=== PATIENT | male | born 1965 | race American Indian/Alaskan Native ===

== ENCOUNTER 2016-09-26 10:23 | Emergency (ER) | payer SELFPAY ==
[2016-09-26] MEDS ORDERED: CLEOCIN 900 MG/50 mL 900 MG/50 ML BAG IV ONE (10:45)
[2016-09-26] MEDS ORDERED: NACL 0.9% 1000 ML 1,000 ML IV ONE (10:46)
[2016-09-26] MEDS ORDERED: NORCO 5/325 PO ONE ×2 (10:47→15:06)
[2016-09-26] MEDS ORDERED: TORADOL IV ONE (10:47)
--- NOTE | 2016-09-26 10:53 | Emergency Department Report ---
ED ENT HPI - General Chief complaint: Sore Throat Stated complaint: SORE THROAT Time Seen by Provider: 09/26/16 10:36 Source: patient Mode of arrival: Ambulatory Limitations: No Limitations - History of Present Illness MD complaint: tooth pain, sore throat, difficulty swallowing -: Gradual Location: other (lower l) Severity: severe Quality: sharp Improves with: none Worsens with: none Context- Dental: history of dental caries, poor dental care Associated Symptoms: gum swelling, toothache, pain with swallowing, sore throat. denies: fever, cough, tinnitus, hearing loss, discharge from ear, rhinorrhea - Related Data Home Medications Medication Instructions Recorded Confirmed Last Taken Amoxicillin TAB 500 mg PO Q12H 09/26/16 09/26/16 09/26/16 Hydrochlorothiazide [HCTZ] 25 mg PO QDAY 09/26/16 09/26/16 09/25/16 Ibuprofen 800 mg PO TID PRN 09/26/16 09/26/16 09/26/16 Previous Rx's Medication Instructions Recorded Last Taken Type Clindamycin [Clindamycin CAP] 300 mg PO Q6H #40 capsule 09/26/16 Unknown Rx traMADol [Ultram] 50 mg PO Q6HR PRN #10 tablet 09/26/16 Unknown Rx Allergies Allergy/AdvReac Type Severity Reaction Status Date / Time No Known Allergies Allergy Unverified 09/26/16 10:32 ED Dental HPI - General Chief complaint: Sore Throat Stated complaint: SORE THROAT Time Seen by Provider: 09/26/16 10:36 Source: patient Mode of arrival: Ambulatory Limitations: No Limitations - Related Data Home Medications Medication Instructions Recorded Confirmed Last Taken Amoxicillin TAB 500 mg PO Q12H 09/26/16 09/26/16 09/26/16 Hydrochlorothiazide [HCTZ] 25 mg PO QDAY 09/26/16 09/26/16 09/25/16 Ibuprofen 800 mg PO TID PRN 09/26/16 09/26/16 09/26/16 Previous Rx's Medication Instructions Recorded Last Taken Type Clindamycin [Clindamycin CAP] 300 mg PO Q6H #40 capsule 09/26/16 Unknown Rx traMADol [Ultram] 50 mg PO Q6HR PRN #10 tablet 09/26/16 Unknown Rx Allergies Allergy/AdvReac Type Severity Reaction Status Date / Time No Known Allergies Allergy Unverified 09/26/16 10:32 ED Review of Systems ROS: Stated complaint: SORE THROAT Other details as noted in HPI Comment: Unobtainable due to pts medical conditions Constitutional: no symptoms reported, see HPI. denies: chills, diaphoresis, fever, malaise Eyes: as per HPI. denies: eye pain, eye discharge, vision change ENT: as per HPI, dental pain. denies: ear pain, throat pain, hearing loss, epistaxis Respiratory: no symptoms reported, see HPI. denies: cough, orthopnea, shortness of breath, SOB with exertion, SOB at rest, stridor Cardiovascular: as per HPI. denies: chest pain, palpitations, dyspnea on exertion, orthopnea Endocrine: no symptoms reported, see HPI. denies: excessive sweating, flushing , intolerance to cold, intolerance to heat Gastrointestinal: as per HPI. denies: abdominal pain, nausea, vomiting Genitourinary: as per HPI. denies: urgency, dysuria Musculoskeletal: as per HPI. denies: back pain Skin: as per HPI. denies: rash, lesions Neurological: as per HPI. denies: headache, weakness Psychiatric: as per HPI. denies: anxiety, depression Hematological/Lymphatic: as per HPI. denies: easy bleeding ED Past Medical Hx - Past Medical History Previous Medical History?: Yes Additional medical history: sore throat, dental caries - Surgical History Past Surgical History?: No - Family History Family history: no significant - Social History Smoking Status: Never Smoker Substance Use Type: Non Opiate Pain, Prescribed - Medications Home Medications: Home Medications Medication Instructions Recorded Confirmed Last Taken Type Amoxicillin TAB 500 mg PO Q12H 09/26/16 09/26/16 09/26/16 History Clindamycin [Clindamycin CAP] 300 mg PO Q6H #40 capsule 09/26/16 Unknown Rx Hydrochlorothiazide [HCTZ] 25 mg PO QDAY 09/26/16 09/26/16 09/25/16 History Ibuprofen 800 mg PO TID PRN 09/26/16 09/26/16 09/26/16 History traMADol [Ultram] 50 mg PO Q6HR PRN #10 tablet 09/26/16 Unknown Rx ED Physical Exam - General Limitations: No Limitations General appearance: alert, in no apparent distress - Head Head exam: Present: atraumatic - Eye Eye exam: Present: normal appearance, PERRL - ENT ENT exam: Present: mucous membranes dry, TM's normal bilaterally - Expanded ENT Exam Expanded Mouth exam: Present: tongue normal. Absent: drooling, trismus, muffled voice, tongue elevation Teeth exam: Present: dental caries, gingival enlargement 1 - Dental Tenderness Throat exam: Positive: normal inspection. Negative: tonsillar erythema, tonsillomegaly, tonsillar exudate, R peritonsillar mass, L peritonsillar mass - Neck Neck exam: Present: tenderness, lymphadenopathy - Expanded Neck Exam Expanded Neck exam: Absent: tenderness, midline deformity, anterior neck swelling, thyroid mass, carotid bruit, tracheal deviation - Respiratory Respiratory exam: Present: normal lung sounds bilaterally - Cardiovascular Cardiovascular Exam: Present: regular rate - GI/Abdominal GI/Abdominal exam: Present: soft - Rectal Rectal exam: Present: deferred - Extremities Exam Extremities exam: Present: normal inspection, full ROM - Back Exam Back exam: Present: normal inspection - Neurological Exam Neurological exam: Present: alert, oriented X3, CN II-XII intact, normal gait, reflexes normal. Absent: motor sensory deficit - Psychiatric Psychiatric exam: Present: normal affect, normal mood - Skin Skin exam: Present: warm, dry, intact, normal color ED Course Vital Signs 09/26/16 09/26/16 09/26/16 10:28 11:31 12:01 Temperature 98.7 F Pulse Rate 106 H Respiratory 18 16 16 Rate Blood Pressure 154/96 O2 Sat by Pulse 98 Oximetry 09/26/16 09/26/16 09/26/16 12:31 13:38 15:19 Temperature Pulse Rate Respiratory 16 16 18 Rate Blood Pressure O2 Sat by Pulse Oximetry - Reevaluation(s) Reevaluation #1: 09/26/16 to er w jaw pain abc intact saw md this week on amox for 3 d for l mary caries swelling of mary molar area of gingivitis. no localized abscess halitosis submand lymphadenopathy pt states can take fluids but not food-bc throat hurts no peritonsilar abscess on exam can open mouth but w pain no fever but has failed outpt 1st line NS Cipro IV labs CT with contrast. Reevaluation #2: 09/26/16 13:[address] Nicole wong 09/26/16 13:[address] Huynh- oral surg at [facility] given report on pt exam and lab/ct findings ok to dc home w follow up follow up with Dr Huynh in [place] on Wednesday09/26/16 15:15 pt monitored most of day feels better sitting up and taking po fluids and pills controlling secretions states pain is dec exam unchanged Reevaluation #3: 09/26/16 15:13 taking po remedicated dc instructions given will fu here tomorrow and then see Dr Huynh on Wednesday for extraction told to return to er if swelling worsens, if difficulty swallowing, or if develops high fever. bp and hr normalizing w dec in pain hr 90 on exam. bp 140/80 dc home ED Medical Decision Making - Lab Data Result diagrams: 09/26/16 10:58 09/26/16 10:58 - Medical Decision Making Discussed w attending and Jason oral surgeon submand abscess w proper anbx and follow up for extraction - Differential Diagnosis abscess v simple caries Critical care attestation.: If time is entered above; I have spent that time in minutes in the direct care of this critically ill patient, excluding procedure time. ED Disposition Clinical Impression: Dental abscess, Dental caries Disposition: DC-01 TO HOME OR SELFCARE Is pt being admited?: No Does the pt Need Aspirin: No Condition: Stable Instructions: Dental Abscess (ED) Additional Instructions: RECHECK HERE AT 7P TOMORROW EVENING ASK FOR CAROLINE WILL SEE ORAL SURG ON WEDNESDAY DR HUYNH IN [place] STOP AMOX ANTIBIOTIC GIVEN BEFORE AND TAKE MEDS GIVEN TODAY. Prescriptions: Clindamycin [Clindamycin CAP] 300 mg PO Q6H #40 capsule traMADol [Ultram] 50 mg PO Q6HR PRN #10 tablet PRN Reason: Pain Referrals: PRIMARY CARE, [Primary Care Provider] - 3-5 Days Time of Disposition: 15:12
[2016-09-26 11:14] LABS: Basophils % (Auto) 0.7 % (0.0-1.8); Eosinophils % (Auto) 1.7 % (0.0-4.3); Hemoglobin 15.4 gm/dl (11.8-15.2); Mean Corpuscular HGB Conc 34 % (32-34); Mean Corpuscular Hemoglobin 30 pg (28-32); Mean Corpuscular Volume 88 fl (84-94); Platelet Count 336 K/mm3 (140-440); Red Blood Count 5.22 M/mm3 (3.65-5.03); Red Cell Distribution Width 12.8 % (13.2-15.2); White Blood Count 12.4 K/mm3 (4.5-11.0)
[2016-09-26] MEDS ORDERED: NACL ONE (11:19)
[2016-09-26 11:31] LABS: Alanine Aminotransferase 32 units/L (7-56); Alkaline Phosphatase 95 units/L (35-129); Anion Gap 22 mmol/L; BUN/Creatinine Ratio 18.33; Blood Urea Nitrogen 22 mg/dL (9-20); Calcium 9.8 mg/dL (8.4-10.2); Carbon Dioxide 24 mmol/L (22-30); Chloride 96.3 mmol/L (98-107); Glucose 97 mg/dL (75-100); Potassium 4.2 mmol/L (3.6-5.0); Sodium 138 mmol/L (137-145); Total Protein 8.2 g/dL (6.3-8.2)
--- NOTE | 2016-09-26 12:39 | Cat Scan Report ---
CT NECK WITH CONTRAST: 09/26/16 CLINICAL: Abscess. TECHNIQUE: Volumetric acquisition and 1.25 mm scan reconstructionsafter the uneventful intravenous injection of 100-cc Omnipaque 350. Consent was obtained prior to the administration of the IV contrast. FINDINGS: A collection of fluid and air in the left submandibular space measures 3.0 x 2.5 x 2.2 cm. Including an irregular enhancing wall and thickened soft tissue the lesion measures 4.1 2.9 x 2.7 cm. Large cavity of the left third molar tooth and a large cavity of the right third molar tooth. The tonsils are normal. The parapharyngeal spaces are normal. Normal salivary glands. Shotty lymph nodes in bilateral submandibular spaces and bilateral jugular chains. No signs of osteomyelitis. Normal mucosal structures of the nasopharynx, hypopharynx and larynx. Normal thyroid. The upper lung meng are clear. Vascular structures are normal. The bones are normal. Mild left ethmoid sinusitis otherwise normal sinuses. Normal mastoids. IMPRESSION: 1. Odontogenic 4 cm left submandibular abscess. 2. No tonsillar abscess. 3. Dental caries with large cavities in bilateral third molars. 4. No signs of osteomyelitis.
[2016-09-26] MEDS ORDERED: CLEOCIN PO ONE (15:06)
[2016-09-26 15:38] VITALS: BP 162/89
== END 2016-09-26 15:36 | disposition home or self-care (01) ==
LOC: ED 10:23
DX: K04.7 Periapical abscess without sinus (principal); K02.9 Dental caries, unspecified
CPT/HCPCS: 36415; 70491; 80053; 85025; 87040; 96365; 96375; 99284; J1885; J7030; Q9967; 96361; 96374

== ENCOUNTER 2016-09-27 18:51 | Emergency (ER) | payer SELFPAY ==
[2016-09-27] MEDS ORDERED: TYLENOL PO ONE (19:02)
[2016-09-27] MEDS ORDERED: TYLENOL ONE (19:02)
[2016-09-27] MEDS ORDERED: CLEOCIN 900 MG/50 mL 900 MG/50 ML BAG IV ONE (19:38)
[2016-09-27] MEDS ORDERED: NACL 0.9% 1000 ML 1,000 ML IV ONE (19:39)
--- NOTE | 2016-09-27 19:40 | Emergency Department Report ---
ED ENT HPI - General Chief complaint: Dental/Oral Stated complaint: DENTAL ABSCESS Time Seen by Provider: 09/27/16 19:13 Source: patient, RN notes reviewed, old records reviewed Mode of arrival: Ambulatory Limitations: No Limitations - History of Present Illness MD complaint: tooth pain, ear pain, other (neck - see note from yest) -: Gradual Location: other (l lower molar; sub mary abscess; see yesterdays note) Severity scale (0 -10): 5 Consistency: constant Worsens with: none Context- Dental: history of dental caries, poor dental care Associated Symptoms: fever, gum swelling, toothache, other (better today but he did not take his clinda today ). denies: cough, pain with swallowing, sore throat, tinnitus, hearing loss, discharge from ear, rhinorrhea - Related Data Home Medications Medication Instructions Recorded Confirmed Last Taken Amoxicillin TAB 500 mg PO Q12H 09/26/16 09/26/16 09/26/16 Hydrochlorothiazide [HCTZ] 25 mg PO QDAY 09/26/16 09/26/16 09/25/16 Ibuprofen 800 mg PO TID PRN 09/26/16 09/26/16 09/26/16 Previous Rx's Medication Instructions Recorded Last Taken Type Clindamycin [Clindamycin CAP] 300 mg PO Q6H #40 capsule 09/26/16 Unknown Rx traMADol [Ultram] 50 mg PO Q6HR PRN #10 tablet 09/26/16 Unknown Rx Allergies Allergy/AdvReac Type Severity Reaction Status Date / Time No Known Allergies Allergy Unverified 09/26/16 10:32 ED Dental HPI - General Chief complaint: Dental/Oral Stated complaint: DENTAL ABSCESS Time Seen by Provider: 09/27/16 19:13 Source: patient Mode of arrival: Ambulatory Limitations: No Limitations - Related Data Home Medications Medication Instructions Recorded Confirmed Last Taken Amoxicillin TAB 500 mg PO Q12H 09/26/16 09/26/16 09/26/16 Hydrochlorothiazide [HCTZ] 25 mg PO QDAY 09/26/16 09/26/16 09/25/16 Ibuprofen 800 mg PO TID PRN 09/26/16 09/26/16 09/26/16 Previous Rx's Medication Instructions Recorded Last Taken Type Clindamycin [Clindamycin CAP] 300 mg PO Q6H #40 capsule 09/26/16 Unknown Rx traMADol [Ultram] 50 mg PO Q6HR PRN #10 tablet 09/26/16 Unknown Rx Allergies Allergy/AdvReac Type Severity Reaction Status Date / Time No Known Allergies Allergy Unverified 09/26/16 10:32 ED Review of Systems ROS: Stated complaint: DENTAL ABSCESS Other details as noted in HPI Comment: All other systems reviewed and negative Constitutional: no symptoms reported, see HPI, diaphoresis, fever. denies: chills, malaise Eyes: as per HPI. denies: eye pain, eye discharge, vision change ENT: as per HPI, ear pain (l). denies: throat pain, dental pain, hearing loss, epistaxis Respiratory: no symptoms reported, see HPI. denies: cough, orthopnea, shortness of breath, SOB with exertion, SOB at rest, stridor Cardiovascular: as per HPI. denies: chest pain, palpitations, dyspnea on exertion, orthopnea Endocrine: no symptoms reported, see HPI. denies: excessive sweating, flushing , intolerance to cold, intolerance to heat Gastrointestinal: as per HPI. denies: abdominal pain, nausea, vomiting Genitourinary: as per HPI. denies: urgency, dysuria Musculoskeletal: as per HPI. denies: back pain Skin: as per HPI. denies: rash, lesions Neurological: as per HPI. denies: headache, weakness Psychiatric: as per HPI. denies: anxiety, depression Hematological/Lymphatic: as per HPI. denies: easy bleeding ED Past Medical Hx - Past Medical History Previous Medical History?: Yes Additional medical history: sore throat, dental caries, Oral abscess with I&D - Surgical History Past Surgical History?: No - Family History Family history: no significant (home med clinda and ultram) - Social History Smoking Status: Never Smoker Substance Use Type: Prescribed - Medications Home Medications: Home Medications Medication Instructions Recorded Confirmed Last Taken Type Amoxicillin TAB 500 mg PO Q12H 09/26/16 09/26/16 09/26/16 History Clindamycin [Clindamycin CAP] 300 mg PO Q6H #40 capsule 09/26/16 Unknown Rx Hydrochlorothiazide [HCTZ] 25 mg PO QDAY 09/26/16 09/26/16 09/25/16 History Ibuprofen 800 mg PO TID PRN 09/26/16 09/26/16 09/26/16 History traMADol [Ultram] 50 mg PO Q6HR PRN #10 tablet 09/26/16 Unknown Rx ED Physical Exam - General Limitations: No Limitations General appearance: alert - Head Head exam: Present: atraumatic - Eye Eye exam: Present: PERRL - ENT ENT exam: Present: mucous membranes moist, TM's normal bilaterally - Expanded ENT Exam Expanded Mouth exam: Present: tongue normal. Absent: drooling, trismus, muffled voice, tongue elevation, laceration Teeth exam: Present: dental caries, gingival enlargement (OF MOLAR L LOWER AREA. NOT AN ABSCESS VISIBLE BUT GINGIVITIS) Throat exam: Positive: normal inspection. Negative: tonsillar erythema, tonsillomegaly, tonsillar exudate, R peritonsillar mass, L peritonsillar mass - Neck Neck exam: Present: normal inspection, full ROM, lymphadenopathy. Absent: tenderness, meningismus, thyromegaly - Respiratory Respiratory exam: Present: normal lung sounds bilaterally - Cardiovascular Cardiovascular Exam: Present: regular rate, tachycardia (w fever ) - GI/Abdominal GI/Abdominal exam: Present: soft - Rectal Rectal exam: Present: deferred - Back Exam Back exam: Present: normal inspection - Neurological Exam Neurological exam: Present: alert, oriented X3, CN II-XII intact, normal gait - Psychiatric Psychiatric exam: Present: normal affect, normal mood - Skin Skin exam: Present: warm, dry, intact. Absent: rash ED Course Vital Signs 09/27/16 09/27/16 18:58 21:22 Temperature 101.4 F H 99.1 F Pulse Rate 102 H Respiratory 20 Rate Blood Pressure 140/90 O2 Sat by Pulse 100 Oximetry - Reevaluation(s) Reevaluation #1: to er for follow up from yesterday he has dec in jaw pain and is taking po abc intact he has some l ear pain he has a fever on arrival but it trends down w meds he got his meds filled but the clinda upset his stomach so he only took it 1 time I educated pt this was important to getting rid of infection he is taking his pain meds pt looks clinically better than yesterday per oral surg he needs to have took extracted fluids/clinda iv wbc trending downward dc home w dc poc and verbalizes understanding ED Medical Decision Making - Lab Data Result diagrams: 09/27/16 19:41 - Medical Decision Making follow up from yesterday much improved will see oral surg Mon AM per POC yesterday Critical care attestation.: If time is entered above; I have spent that time in minutes in the direct care of this critically ill patient, excluding procedure time. ED Disposition Clinical Impression: Dental abscess, Dental caries Disposition: TO HOME OR SELFCARE Is pt being admited?: No Does the pt Need Aspirin: No Condition: Stable Instructions: Dental Abscess (ED) Additional Instructions: TAKE YOU MED INSTRUCTED TAKE IT WITH FOOD AND IT WILL NOT BOTHER YOUR STOMACH IT IS IMPERATIVE TO GET RID OF THIS INFECTION TAKE MOTRIN AND OR TYLENOL FOR FEVER DRINK PLENTY OF FLUIDS CALL ORAL SURG INSTRUCTED YESTERDAY ANT DENISE IN THE AM HE WILL SEE YOU TO EXTRACT TOOK. TELL HIM YOU WERE SEEN IN ER THIS WEEKEND AND WE HAD CALLED HIM ON WEDNESDAY WHEN HE WAS [facility]ER FOR [facility]AL [facility] Referrals: PRIMARY CARE, [Primary Care Provider] - 3-5 Days Time of Disposition: 21:34
[2016-09-27 20:20] LABS: Basophils % (Auto) 0.8 % (0.0-1.8); Eosinophils % (Auto) 3.8 % (0.0-4.3); Hematocrit 42.7 % (35.5-45.6); Hemoglobin 14.4 gm/dl (11.8-15.2); Mean Corpuscular HGB Conc 34 % (32-34); Mean Corpuscular Hemoglobin 30 pg (28-32); Mean Corpuscular Volume 88 fl (84-94); Platelet Count 397 K/mm3 (140-440); Red Blood Count 4.87 M/mm3 (3.65-5.03); Red Cell Distribution Width 12.7 % (13.2-15.2); White Blood Count 11.7 K/mm3 (4.5-11.0)
[2016-09-27] MEDS ORDERED: MOTRIN PO ONE (21:04)
[2016-09-27 21:42] VITALS: BP 143/78
== END 2016-09-27 21:53 | disposition home or self-care (01) ==
LOC: ED 18:51
DX: K04.7 Periapical abscess without sinus (principal); K02.9 Dental caries, unspecified
CPT/HCPCS: 36415; 85025; 96365; 99283; J7030